=== PATIENT | male | born 1965 | race African-American/Black ===

== ENCOUNTER 2017-09-28 06:11 | Inpatient (IN) | payer OTHER ==
[~2017-09-28] VITALS: Ht 170.2 cm; Wt 70.4 kg
[2017-09-28] MEDS ORDERED: METOPROLOL TARTRATE 25 MG TAB PO PRN (06:45)
[2017-09-28] MEDS ORDERED: CHLORHEXIDINE GLUCONATE 2 % 1 PACK (2 CLOTHS) TOPICAL PRN (06:45)
[2017-09-28] MEDS ORDERED: SODIUM CHLORID 0.9% 500 ML IV PRN (06:45)
[2017-09-28] MEDS ORDERED: ACETAMINOPHEN 1000 MG/100 ML 100 ML IV PRN (06:45)
[2017-09-28] MEDS ORDERED: ceFAZolin 2 GM PREMIX 50 ML IV SCH (06:45)
[2017-09-28] MEDS ORDERED: LACTATED RINGER'S 1000 ML IV PRN (06:45)
[2017-09-28] MEDS ORDERED: POVIDONE IODINE 5% (ANTISEPSIS KIT) 4 APPLICATIONS EACH NARE PRN (06:45)
[2017-09-28] MEDS ORDERED: BUPIVACAINE/EPINEPHRINE 0.25% PF 10 ML VIAL ONE (06:51)
[2017-09-28] MEDS ORDERED: CITA40TA4 PO (07:02)
[2017-09-28] MEDS ORDERED: CLON0.5T PO (07:03)
[2017-09-28] MEDS ORDERED: IMAT400T2 (07:05)
[2017-09-28] MEDS ORDERED: FAMOTIDINE 20 MG/2 ML VIAL ONE (07:36)
[2017-09-28] MEDS ORDERED: BUPIVACAINE LIPOSOME PF 1.3% 20 ML VIAL ONE (07:40)
--- NOTE | 2017-09-28 09:51 | EKG ---
Date Performed: 09/28/2017 Time Performed: 07:03:46 PTAGE: 52 years EKG: Sinus rhythm VOLTAGE CRITERIA FOR LVH NONSPECIFIC T-WAVE ABNORMALITY ABNORMAL ECG Since the prior tracing, there has been no significant change DOCTOR: Vik Chiu Interpretating Date/Time 09/28/2017 09:50:57
[2017-09-28] MEDS ORDERED: DO NOT ADM ANY ANTICOAGULANT DRUGS PRN (10:35)
[2017-09-28] MEDS ORDERED: MIDAZOLAM HCL 2 MG/2 ML VIAL ONE (10:48)
[2017-09-28] MEDS ORDERED: HYDROmorphone HCL PF 2 MG/ML VIAL ONE (10:50)
--- NOTE | 2017-09-28 11:14 | HHI.PR ---
cc: Kirill Ortega MD Immediate Post Op Note Procedure Date: Sep 28, 2017 Pre Op Diagnosis: (1) Personal history of malignant gastrointestinal stromal tumor (GIST) (2) Intraabdominal mass Post Op Diagnosis: (1) Personal history of malignant gastrointestinal stromal tumor (GIST) (2) Intraabdominal mass Surgeon: Kirill Ortega [place] Man(s): Please refer to the operating room records to provide this type of information Procedure: Exploratory laparotomy Lysis of lesions Resection of 7 cm abdominal mass close to the pancreas attached to the greater curve of the stomach Findings: Mass posterior wall of the stomach close to the pancreas Intra-abdominal adhesions Additional Information: No evidence of metastatic disease Specimen(s) removed: 7 cm peripancreatic mass attached to the greater curve of the stomach Estimated blood loss: 50 cc Anesthesia: General Drains: None IVF Patient to: PACU Patient Condition: Good Implant/Devices: SEE IMPLANT LOG (if applicable) Date/Time of Procedure: SEE SURGICAL CARE RECORD Kirill Ortega MD Sep 28, 2017 11:14
[2017-09-28] MEDS ORDERED: Post-op Orders (for Pharmacy) XX ONE (11:15)
[2017-09-28] MEDS ORDERED: NALOXONE HCL 0.4 MG/ML AMP IV PUSH PRN (11:15)
[2017-09-28] MEDS ORDERED: ONDANSETRON HCL 4 MG/2 ML VIAL IV PUSH PRN (11:15)
[2017-09-28] MEDS: SODIUM CHLOR 0.9% 1000 ML INJ 1,000 ML IV SCH ×2 (11:35→20:21)
[2017-09-28] MEDS: HYDROmorphone HCL PCA 6 MG/30 ML IV SCH (11:35)
[2017-09-28] MEDS ORDERED: LIDOCAINE HCL 1% PF 5 ML SYRINGE OTHER ONE (12:00)
[2017-09-28] MEDS ORDERED: NEOSTIGMINE 5 MG/5 ML SYRINGE IV PUSH ONE (12:00)
[2017-09-28] MEDS ORDERED: ROCURONIUM INJ 50 MG/5 ML SYRINGE IV PUSH ONE (12:00)
[2017-09-28] MEDS ORDERED: VECURONIUM BROMIDE 20 MG VIAL IV ONE (12:00)
[2017-09-28] MEDS ORDERED: NORMOSOL R INJ 1,000 ML IV ONE (12:00)
[2017-09-28] MEDS ORDERED: LACTATED RINGER'S 1000 ML INJ 1,000 ML IV ONE (12:00)
[2017-09-28] MEDS ORDERED: PROPOFOL 200 MG/20 ML AMP IV ONE (12:00)
[2017-09-28] MEDS ORDERED: DEXAMETHASONE SOD PHOS 4 MG/ML VIAL IV ONE (12:00)
[2017-09-28] MEDS ORDERED: SODIUM CHLORIDE 0.9% 20 ML VIAL IV ONE (12:00)
[2017-09-28] MEDS: PANTOPRAZOLE SODIUM 40 MG VIAL IV PUSH SCH (12:00)
[2017-09-28] MEDS ORDERED: GLYCOPYRROLATE 1 MG/5 ML SYRINGE IV PUSH ONE (12:00)
[2017-09-28] MEDS ORDERED: ONDANSETRON HCL 4 MG/2 ML VIAL IV ONE (12:00)
[2017-09-28] MEDS ORDERED: PHENYLEPH/NS 1000 MCG/10 ML SYR IV ONE (12:00)
[2017-09-28] MEDS ORDERED: STERILE WATER FOR INJECTION 20 ML VIAL IV ONE (12:00)
--- NOTE | 2017-09-28 13:13 | MP ---
cc: ERMA GEE JOSEPH D. M.D. DATE OF SURGERY: 09/28/2017 PREOPERATIVE DIAGNOSIS Previous history of GIST tumor many years ago, status post resection with recurrent left upper quadrant abdominal mass. POSTOPERATIVE DIAGNOSIS Previous history of GIST tumor many years ago, status post resection with recurrent left upper quadrant abdominal mass. PROCEDURE 1. Exploratory laparotomy. 2. Lysis of massive adhesions. 3. Identification and radical resection of 7 x 7 cm intra-abdominal mass somewhat adherent to the posterior wall of the remnant stomach from his distal gastrectomy and closely associated but not involving the pancreas. ANESTHESIA General with a tap block. SURGEON Dr. Ortega. INDICATION This is a pleasant 52-year-old gentleman who many years ago had a fairly sizable GIST tumor, was metastatic to both lobes of his liver that was resected. He has been on Gleevec therapy since that time. He was undergoing screening CT scan when a mass that was seen near the stomach arose and started to grow. GI attempted to get a tissue diagnosis and failed. Plans were made for exploration and removal. Intraoperative it was found that he has fair amount of adhesions, taken down with blunt dissection, we identify the mass which is resected, no metastatic disease is seen in the left to right lobe. PROCEDURE The patient was taken to the operating room and placed in the supine position. After anesthesia the anesthesiologist did do a tap block. We prepped and draped with Betadine. He is given preoperative antibiotics. We make a subcostal incision from his old subcostal incision from his previous surgery across the midline, it is directed on the left subcostal area. We dissect down to the fascia, transect scarred in rectus muscle. We were able to enter the abdomen. Fair amount of adhesions were taken down with a combination of blunt dissection, electrocautery dissection, sharp dissection and using the harmonic scalpel. We are able to palpate the mass posterior to the remnant of the stomach along the greater curve. We were able to elevate this up. We see the Eboni-en-Y anastomosis. We are able to palpate the mass. We then stay close to the mass to get adequate margins, not damage the surrounding structures. We are able to tease this away with a combination of sharp dissection, electrocautery dissection, harmonic scalpel dissection and blunt dissection. We are able to tease this up from the surrounding tissues to a 2 cm area that appears to be very adherent to the posterior wall of the gastric remnant. We are able to tease this down to where we are able to fire a KAITLIN stapling device green load to resect this with adequate margins. We then irrigate copiously. The specimen is measured, it measures 7 x 7 cm and passed off the field and sent down to pathology for pathological analysis. We then takedown some more adhesions. We are able to palpate the left and right lobe of the liver. I do not see any metastatic disease. His gallbladder does not have stones, it is slightly dilated but does not appear diseased. We are able to free up some more adhesions to close the subcostal incision with a running PDS suture. Skin is then closed with the skin staple device. A JESUS dressing is applied. Abdominal binder is applied. The patient tolerated the procedure well and had no immediate postop complications. Kirill Ortega MD JERROL/ELIO /11:22 AM /12:43 PM [facility]
[2017-09-28] MEDS: ACETAMINOPHEN 1000 MG/100 ML 100 ML IV SCH ×2 (14:00→20:21)
[2017-09-28 16:00] VITALS: BP 110/69; PULSE 90; RESP 15; TEMP 96.7; O2SAT 93
[2017-09-28 16:12] VITALS: O2SAT 96
[2017-09-28 20:00] VITALS: BP 150/84; PULSE 84; RESP 18; TEMP 98.1; O2SAT 97
[2017-09-28] MEDS: PCA - TOTAL MG DILAUDID DELIVERED PER SHIFT OTHER SCH (20:21)
[2017-09-29] VITALS: BP 137/76; PULSE 84; RESP 18; TEMP 97.8; O2SAT 95
[2017-09-29] MEDS ORDERED: clonazePAM 0.5 MG TAB PO ONE (01:00)
[2017-09-29] MEDS: ACETAMINOPHEN 1000 MG/100 ML 100 ML IV SCH ×4 (01:10→20:20)
[2017-09-29] MEDS: HYDROmorphone HCL PCA 6 MG/30 ML IV SCH ×3 (01:29→20:28)
[2017-09-29 04:00] VITALS: BP 147/78; PULSE 92; RESP 18; TEMP 97; O2SAT 94
[2017-09-29] MEDS: PCA - TOTAL MG DILAUDID DELIVERED PER SHIFT OTHER SCH ×3 (05:49→22:00)
[2017-09-29 08:00] VITALS: BP 129/64; PULSE 73; RESP 18; TEMP 96.5; O2SAT 99
[2017-09-29] MEDS: SODIUM CHLOR 0.9% 1000 ML INJ 1,000 ML IV SCH ×2 (08:24→17:36)
[2017-09-29] MEDS: ENOXAPARIN SODIUM 30 MG/0.3 ML SYRINGE SQ SCH (08:31)
[2017-09-29] MEDS: PANTOPRAZOLE SODIUM 40 MG VIAL IV PUSH SCH (11:51)
[2017-09-29 12:00] VITALS: BP 133/72; PULSE 88; RESP 16; TEMP 98.2; O2SAT 98
--- NOTE | 2017-09-29 15:59 | HHI.PR ---
cc: Aimee Kaur MD Subjective Subjective Notes DAILY PROGRESS NOTE FOR SURGICAL ATTENDING, DR. 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 AIMEE KAUR I attest that I had a [id number] encounter with the patient on the same day, and personally performed and documented my assessment and findings in the medical record. The following services were provided during this hospital visit: Chart data review, vital sign assessments/reviewing monitor data Review of consultations notes if present. Medication orders/review and/or management Ordering and/or reviewing lab tests Ordering and/or interpreting/reviewing x-rays and/or diagnostic studies Care of the patient and discussion of the patient with the care team Documentation time To help prompt me to consider important information that might be impacting today's encounter and assessment, information from prior notes written by myself or my colleagues may have been "brought forward/copy and pasted" into today's note. Aimee Kaur MD Sep 29, 2017 15:59
[2017-09-29 16:00] VITALS: BP 168/86; PULSE 117; RESP 18; TEMP 97.1; O2SAT 96
[2017-09-29] MEDS ORDERED: NORC5TAB PO (16:00)
[2017-09-29] MEDS ORDERED: ACETAMINOPHEN/HYDROcodone 325 MG/5 MG TAB PO PRN (16:15)
[2017-09-29 20:00] VITALS: BP 135/73; PULSE 91; RESP 20; TEMP 98.5; O2SAT 94
[2017-09-29] MEDS: clonazePAM 0.5 MG TAB PO SCH (20:19)
[2017-09-30] VITALS: BP 153/80; PULSE 97; RESP 18; TEMP 97.8; O2SAT 94
[2017-09-30] MEDS: ACETAMINOPHEN 1000 MG/100 ML 100 ML IV SCH ×2 (01:19→08:00)
[2017-09-30 04:00] VITALS: BP 138/77; PULSE 107; RESP 18; TEMP 99.1; O2SAT 99
[2017-09-30] MEDS: SODIUM CHLOR 0.9% 1000 ML INJ 1,000 ML IV SCH (04:18)
[2017-09-30] MEDS: HYDROmorphone HCL PCA 6 MG/30 ML IV SCH (04:20)
[2017-09-30] MEDS: PCA - TOTAL MG DILAUDID DELIVERED PER SHIFT OTHER SCH (04:21)
[2017-09-30 08:00] VITALS: BP 182/87; PULSE 111; RESP 19; TEMP 100; O2SAT 94
[2017-09-30] MEDS ORDERED: CITALOPRAM HYDROBROMIDE 40 MG TAB PO SCH (09:00)
[2017-09-30] MEDS ORDERED: PANTOPRAZOLE SOD 20 MG DELAYED RELEASE TAB PO SCH (09:00)
[2017-09-30] MEDS: ENOXAPARIN SODIUM 30 MG/0.3 ML SYRINGE SQ SCH (09:37)
[2017-09-30] MEDS: clonazePAM 0.5 MG TAB PO SCH (09:37)
--- NOTE | 2017-09-30 10:40 | HHI.DS ---
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, malignant ICD Codes: C49.A3 - Gastrointestinal stromal tumor of small intestine Diagnosis: Principal (2) Personal history of malignant gastrointestinal stromal tumor (GIST) ICD Codes: Z85.09 - Personal history of malignant neoplasm of other digestive organs Status: Chronic (3) Intraabdominal mass ICD Codes: R19.00 - Intra-abdominal and pelvic swelling, mass and lump, unspecified site Status: Chronic Procedures exploratory laparotomy lysis of adhesions removal of intra-abdominal mass that pathology revealed to be a recurrence GIST tumor Brief History 52-year-old gentleman who had just tumor many years ago. He was followed for many years on GleeVAC he subsequent had a screening CT scan which showed a mass growing. He was brought to the operating room for resection Significant Findings intra-abdominal mass found to be a recurrent gist tumor Hospital Course patient was brought to the operating room when he came to the hospital he underwent resection of a recurrent gist tumor he did well and was able to be discharged 2 days later tolerating a diet with good pain control he will follow up in my office 3 to 5 days for a wound check he was given a prescription for pain medication Pt Condition on Discharge: Good Discharge Disposition: Discharge Home Discharge Instructions DIET: Follow Instructions for: As Tolerated, No Restrictions Activities you can perform: See Additionl Instruction Activities to Avoid: Concussion Sports, Contact Sports, Lifting/Bending, Weight Bearing, Prolonged Standing, Strenuous Activity, Bathing, Driving Other Activity Instructions: NO LIFTING, TWISTING, OR BENDING Follow up Referrals: Surgical - 3-5 Days with Kirill Ortega MD New Medications: Hydrocodone-Acetaminophen ([place]) 5 Mg-325 Mg Tab 1 TAB PO Q6H PRN for PAIN, #28 TAB 0 Refills Continued Medications: Citalopram (Citalopram) 40 Mg Tab 40 MG PO DAILY for Control Depression, #30 TAB 0 Refills Clonazepam (Clonazepam) 0.5 Mg Tab 0.5 MG PO BID, #60 TAB 0 Refills Imatinib Mesylate (Imatinib Mesylate) 400 Mg Tablet 400 MG DAILY Kirill Ortega MD Sep 30, 2017 10:40
== END 2017-09-30 10:25 | disposition home or self-care (01) | DRG 983 ==
LOC: HSDC 06:11 → HSDI 11:08 → N07A 14:43
PROVIDERS: ADMIT Surgery; ATTEND Surgery
PROC: 0DNW0ZZ Release Peritoneum, Open Approach (ICD-10-PCS; 2017-09-28)
PROC: 3E0T3BZ Introduction of Anesthetic Agent into Peripheral Nerves and Plexi, Percutaneous Approach (ICD-10-PCS; 2017-09-28)
PROC: 0DB80ZX Excision of Small Intestine, Open Approach, Diagnostic (ICD-10-PCS; principal; 2017-09-28 07:54)
DX: C49.A3 Gastrointestinal stromal tumor of small intestine (principal); F32.9 Major depressive disorder, single episode, unspecified; K66.0 Peritoneal adhesions (postprocedural) (postinfection); Z88.5 Allergy status to narcotic agent; Z88.8 Allergy status to other drugs, medicaments and biological substances
CPT/HCPCS: 88305; 88307; 88309; 93005; 94150; C9113; C9290; J0131; J0690; J1100; J1170; J1650; J2250; J2370; J2405; J2710; J3010; J7030; J7120